=== PATIENT | male | born 1995 | race Caucasian/White ===

== ENCOUNTER 2018-11-05 07:29 | Day surgery (SDC) | payer OTHER ==
[2018-11-03 14:45] VITALS: BMI 23.9
[2018-11-05 08:15] LABS: URINE APPEARANCE CLEAR; URINE BILIRUBIN NEGATIVE (<2.0 mg/dL); URINE COLOR YELLOW; URINE GLUCOSE (UA) NEGATIVE (NEGATIVE); URINE KETONE NEGATIVE (NEGATIVE); URINE LEUK ESTERASE NEGATIVE (NEGATIVE); URINE NITRITE NEGATIVE (NEGATIVE); URINE PROTEIN NEGATIVE (NEGATIVE); URINE UROBILINOGEN NEGATIVE mg/dL (0.2-1.0)
[2018-11-05 08:22] LABS: HEMATOCRIT 45.7 % (35.4-49); MCH 29.8 pg (25.7-33.7); MCHC 34.9 g/dl (32.0-35.9); MEAN CELL VOLUME 85.3 fl (80-96); MEAN PLT VOLUME 8.8 fl (7.5-11.1); PLATELET COUNT 287 K/MM3 (134-434); RBC 5.36 M/mm3 (4.00-5.60); RDW 13.4 % (11.9-15.9); WHITE BLOOD COUNT 10.2 K/mm3 (4.0-10.0)
[2018-11-05 08:45] LABS: ALK PHOS 118 U/L (45-117); ANION GAP 5 MMOL/L (8-16); BILIRUBIN,TOTAL 0.6 mg/dL (0.2-1); BLOOD UREA NITROGEN 17 mg/dL (7-18); CALCIUM 9.1 mg/dL (8.5-10.1); CHLORIDE 102 mmol/L (98-107); CO2 31 mmol/L (21-32); CREATININE 0.9 mg/dL (0.55-1.3); GLUCOSE,RANDOM 86 mg/dL (74-106); POTASSIUM 4.4 mmol/L (3.5-5.1); SGOT/AST 82 U/L (15-37); SGPT/ALT 50 U/L (13-61); SODIUM 138 mmol/L (136-145); TOT PROT 7.8 g/dl (6.4-8.2)
[2018-11-05 08:50] LABS: INR 1.08 (0.83-1.09); PROTHROMBIN TIME (PATIENT) 12.7 SEC (9.7-13.0)
--- NOTE | 2018-11-05 10:58 | HP ---
History & Physical Update - History History: No Change - Physical Physical: No Change - Assessment Assessment: No Change - Plan Plan: No Change (painful right gynecomastia; right subcutanous mastectomy; r/b/t /a's d/w the patient and he wished to proceed; informed consent obtained.)
[2018-11-05] MEDS ORDERED: DESFLURANE GAS 240 ML BOTTLE IH ONE (11:22)
[2018-11-05] MEDS ORDERED: BUPIVACAINE HCL/PF 0.5% (5MG/ML) 10 ML VIAL ONE (11:22)
[2018-11-05] MEDS ORDERED: LIDOCAINE HCL 1%, 10 MG/ML (20ML VIAL) ONE (11:22)
[2018-11-05] MEDS ORDERED: MIDAZOLAM HCL 2 MG/2 ML SINGLE DOSE VIAL ONE (11:24)
[2018-11-05] MEDS ORDERED: LIDOCAINE HCL/PF 2% SDV 5ML VIAL ONE (11:24)
[2018-11-05] MEDS ORDERED: KETOROLAC TROMETHAMINE 30 MG/1 ML VIAL ONE (11:24)
[2018-11-05] MEDS ORDERED: PROPOFOL 20 ML ONE ×2 (11:24)
[2018-11-05] MEDS ORDERED: ONDANSETRON 4 MG/2 ML VIAL ONE (11:24)
[2018-11-05] MEDS ORDERED: ceFAZolin SODIUM 1 GM VIAL IVPB ONE (11:40)
[2018-11-05] MEDS ORDERED: LIDOCAINE HCL 1%, 10 MG/ML (20ML VIAL) NR ONE (12:00)
[2018-11-05] MEDS ORDERED: BUPIVACAINE HCL/PF 0.5% (5MG/ML) 10 ML VIAL IJ ONE (12:00)
[2018-11-05] MEDS ORDERED: BACITRACIN 15 GM TUBE TOPICAL OINTMENT ONE (12:11)
[2018-11-05] MEDS ORDERED: BACITRACIN 15 GM TUBE TOPICAL OINTMENT TP ONE (12:47)
[2018-11-05] MEDS ORDERED: ONDANSETRON 4 MG/2 ML VIAL IVPUSH PRN (13:07)
[2018-11-05] MEDS ORDERED: PROMETHAZINE HCL 25 MG/1 ML VIAL IVPUSH PRN (13:07)
[2018-11-05] MEDS ORDERED: oxyCODONE HCL 5 MG TABLET PO PRN (13:07)
--- NOTE | 2018-11-05 13:23 | OP ---
Operative Note - Note: Operative Date: 11/05/18 Pre-Operative Diagnosis: Right breast gynecomastia Operation: Excision of right breast tissue Findings: as dictated Post-Operative Diagnosis: Same as Pre-op Surgeon: Neo [facility] Administrator: Thania Copeland Anesthesiologist/WAXER TENDER: Keron Krishnamurthy Anesthesia: General, Local Specimens Removed: Right breast tissue sent for permanent path Estimated Blood Loss (mls): 5 (ml)
--- NOTE | 2018-11-05 13:24 | SURG ---
Surgery Bevel Gear Generator Operator Note Bevel Gear Generator Operator: Thania Copeland PA-C (Suzy) Date of Service: 11/05/18 Diagnosis: Right breast gynecomastia Procedure: Excision of right breast tissue I was present for the entirety of the operative procedure. For further detail, please refer to operative report.
[2018-11-05 14:59] VITALS: BP 129/64; PULSE 66; TEMP 97.9
--- NOTE | 2018-11-07 08:37 | OP ---
DATE OF OPERATION: 11/05/2018 PREOPERATIVE DIAGNOSIS: Right breast gynecomastia. POSTOPERATIVE DIAGNOSIS: Right breast gynecomastia. PROCEDURE: Excision of right breast gynecomastia (subcutaneous mastectomy). SURGEON: Neo Macias MD QUILTING MACHINE HELPER: Tori Copeland PA-C ANESTHESIA: General. OPERATIVE FINDINGS: Right gynecomastia in the retroareolar position. The rest of the findings were unremarkable. DESCRIPTION OF PROCEDURE: The patient was placed on the operating room table in the supine position. After the induction of general anesthesia, the patient's right chest wall was prepped with ChloraPrep and draped in sterile fashion. A time- out was taken and then a circumareolar incision was made from the 3 o'clock to 9 o'clock position with a scalpel. This was taken down through skin and subcutaneous tissue. The nipple areolar complex was then elevated off the underlying gynecomastia using sharp dissection and electrocautery. Next, the flaps were elevated inferiorly and dissection carried down to the chest wall. The involved gynecomastia was then removed from inferior to superior just above the pectoralis major fascia and continued up to behind the 12 o'clock position of the nipple areolar complex. The specimen was passed off the operative field and sent for pathological examination. Hemostasis was secured with electrocautery and the wound was irrigated with sterile saline. Then 0.5% Marcaine was infiltrated into the operative field and then the incision was closed in layers with interrupted 3-0 Vicryl for the deep dermis and then 4-0 Monocryl in a subcuticular continuous fashion followed by 5-0 Monocryl in a running continuous fashion. Steri-Strips, fluffs, and dry sterile dressings were placed and the procedure terminated at this point and the patient aroused from general anesthesia and transferred to the post anesthesia care unit in stable condition awake and alert. ESTIMATED BLOOD LOSS: 5 mL. REPLACEMENTS: Crystalloid. DRAINS: None. SPECIMENS: Right breast tissue fresh to Pathology. I, Neo Macias, was physically present in the operating room from the time the patient was placed on the operating room table until he was transferred to the post anesthesia care unit in Other Machine. MD RYAN Bronson/[id number] MTDD
--- NOTE | 2018-11-09 16:14 | PATH ---
Surgical Pathology Report Patient Name: SANDI LE [facility]. Rec. #: [id number] /Age/Gender: 1995 (Age: 23) / M Account: [id number] Location: [facility] SURGICAL Taken: 11/05/2018 Received: 11/05/2018 Reported: 11/09/2018 Physicians: Neo Macias MD Specimen(s) Received GYNECOMASTIA Clinical History Gynecomastia right breast Final Diagnosis BREAST, RIGHT, GYNECOMASTIA, EXCISION: GYNECOMASTIA. SCANT SKELETAL MUSCLE Electronically Signed Nidia Garrison M.D. Gross Description Received in formalin labeled "gynecomastia right breast," is a 6 g aggregate of 2 dickinson-yellow, irregular, unoriented portions of fibroadipose tissue measuring 2.7 x 2.0 x 0.8 cm and 3.4 x 2.3 x 0.9 cm. There are no needle localization wires present. There is no skin present. The smaller specimen is inked blue and the larger specimen is inked black. Sectioning reveals abundant dense, white, firm fibrous tissue. No definitive mass is identified. The specimen is entirely submitted in 10 cassettes as follows: 1-5-smaller specimen; 6-10-larger specimen. 11/06/201811/06/2018
== END 2018-11-05 14:50 | disposition home or self-care (01) ==
LOC: JASU-SURG 07:29
PROVIDERS: ATTEND Surgery
PROC: 0HBT0ZZ Excision of Right Breast, Open Approach (ICD-10-PCS; principal; 2018-11-05 11:00)
DX: N62 Hypertrophy of breast (principal)
CPT/HCPCS: 36415; 80053; 81003; 85027; 85610; 88307-TC; 94760